=== PATIENT | female | born 1975 | race Caucasian/White ===

== ENCOUNTER → 2018-10-14 | Outpatient (CLI) | payer BC | LOC: COL.RAD 07:19 | DX: H53.9 Unspecified visual disturbance (principal); R51 Headache; R42 Dizziness and giddiness | CPT/HCPCS: A9585 ==

== ENCOUNTER → 2018-12-19 | Outpatient (CLI) | payer BC | LOC: COL.LAB 10:21 | DX: R05 Cough (principal) ==